=== PATIENT | female | born 1990 | race Two or more races ===

== ENCOUNTER 2019-05-05 20:54 | Emergency (ER) | payer OTHER ==
[2019-05-05 21:02] VITALS: BP 133/79; PULSE 77; TEMP 98.2; BMI 36.9
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
[2019-05-05] MEDS ORDERED: ACETAMINOPHEN 325 MG TABLET (FP) PO ONE (21:30)
[2019-05-05] MEDS ORDERED: ACETAMINOPHEN 325 MG TABLET (FP) ONE (21:43)
== END 2019-05-05 22:44 | disposition home or self-care (01) ==
LOC: JER 20:54 → JERFT 20:54
DX: O99.89 Other specified diseases and conditions complicating pregnancy, childbirth and the puerperium (principal); S49.82XA Other specified injuries of left shoulder and upper arm, initial encounter; S89.81XA Other specified injuries of right lower leg, initial encounter; V48.6XXA Car passenger injured in noncollision transport accident in traffic accident, initial encounter; Y92.488 Other paved roadways as the place of occurrence of the external cause; Y93.89 Activity, other specified; Y99.8 Other external cause status; Z3A.38 38 weeks gestation of pregnancy
CPT/HCPCS: 73030-TC-LT-FY; 73562-TC-RT-FY; 73590-TC-RT-FY; 99282-25